=== PATIENT | female | born 1950 | race Caucasian/White ===

== ENCOUNTER 2018-01-25 20:21 | Inpatient (IN) | payer MEDICARE, MEDICAID ==
[~2018-01-25] VITALS: Ht 1605 cm; Wt 73.5 kg
[~2018-01-25 20:21] MED LIST: ACETAMINOPHEN325 MG PO; ANTIVERT25 MG PO; ASPIRIN81 M2 PO; CRESTOR5 MG PO; DIFLUCAN150 M1 PO; IBUPROFEN 800800 M1 PO; LEVAQUIN 500 M500 M2 PO; LIPITOR 20 MG T20 M1 PO; NITROGLYCERIN0.4 MG SL; NOHOMEMEDICATIONS; PREDNISONE 20 M20 M1 PO; ZPAK PO
[2018-01-25 20:25] VITALS: BP 171/73
[2018-01-25 21:04] LABS: ABSOLUTE BASOPHILS 0.1 thou/uL (0.0-0.2); ABSOLUTE EOSINOPHILS 0.1 thou/uL (0.0-0.7); ABSOLUTE LYMPHOCYTES 2.6 thou/uL (0.8-5.3); ABSOLUTE MONOCYTES 0.4 thou/uL (0.0-1.2); ABSOLUTE NEUTROPHILS 4.3 thou/uL (1.6-8.1); BASOPHILS 0.9 %; EOSINOPHILS 1.4 %; HEMATOCRIT 39.4 % (37.0-47.0); HEMOGLOBIN 13.6 gm/dL (12.0-15.0); LYMPHOCYTES 34.6 %; MCH 29.4 pg (26.0-34.0); MCHC 34.6 g/dL (28.0-37.0); MONOCYTES 5.1 %; MPV 6.9 fl. (7.2-11.1); NUCLEATED RBCS 0 /100WBC; PLATELET COUNT* 254 thou/uL (150-400); RBC 4.64 mil/uL (4.20-5.00); RDW-CV 13.6 % (10.5-14.5); WBC 7.4 thou/uL (4.0-11.0)
[2018-01-25 21:10] LABS: ANION GAP 8 mmol/L (7-16); BUN 21 mg/dL (7-18); CALCIUM 8.5 mg/dL (8.5-10.1); CHLORIDE 104 mmol/L (98-107); CO2 28 mmol/L (21-32); GLUCOSE 113 mg/dL (70-99); POTASSIUM 4.1 mmol/L (3.5-5.1); SODIUM 140 mmol/L (136-145)
[2018-01-25 21:14] LABS: APTT 25.4 Seconds (25.0-31.3); PROTIME 9.9 Seconds (9.20-11.50)
[2018-01-25 21:17] LABS: ALBUMIN 3.7 g/dL (3.4-5.0); ALKALINE PHOSPHATASE 64 U/L (46-116); LIPASE 135 U/L (73-393); SGOT 17 U/L (15-37); SGPT 25 U/L (30-65); TOTAL BILIRUBIN 0.3 mg/dL (<0.1-1.0); TOTAL PROTEIN 7.3 g/dL (6.4-8.2); TROPONIN-I LEVEL <0.06 ng/mL (<0.06)
[2018-01-26] VITALS (14 sets, daily range): BP systolic 99–133; BP diastolic 53–70
--- NOTE | 2018-01-26 05:01 | NUR ---
ASSUMED PT CARE AT 0015. PT IS A&OX4, TRACING NSR ON THE MONITOR, ON RA SATTING MID TO HIGH 90'S. PT IS UP AD SAI IN HER ROOM AND APPEARS STABLE ON HER FEET. PT DENIES ANY PAIN OR NEEDS AT THIS TIME. ADMISSION ASSESSMENT COMPLETED CHARTED. BED IN LOW POSITION, CALL LIGHT IN REACH, BED ALARM ON, YELLOW ARM BAND AND SOCKS IN PLACE. HOURLY ROUNDING COMPLETED FOR PT SAFETY.
--- NOTE | 2018-01-26 13:04 | EKG ---
[place] [address] ELECTROCARDIOGRAM REPORT Name: TANIA ALEXANDRA [address] [id number] Admission: 01/25/18 Attend Phys: Adalgisa Garcia Discharge: Date of : 54 Report #: [id number] THIS REPORT FOR: //name// [facility] ED Test Date: 2018-01-25 Test Time: 20:27:24 Pat Name: TANIA ALEXANDRA Department: Room: Gender: F Management Consulting: [facility] : 1950 Requested By: Shabnam Villanueva Order Number: [id number] MD: Lloyd Goldberg Measurements Intervals [address] [place] Rate: 71 P: 78 FL: 140 QRS: 51 QRSD: 107 T: 64 QT: 410 QTc: 446 Interpretive Statements Sinus rhythm Nonspecific repol abnormality, diffuse leads; consider ischemia Compared to ECG 05/30/2013 08:52:47 Sinus arrhythmia no longer present Electronically Signed On 01-26-2018 13:03:52 CDT by Lloyd Goldberg [email or web address] <ELECTRONICALLY SIGNED> By: Lloyd Goldberg MD, [facility] 01/26/18 1303 26 26 Lloyd Goldberg MD, [facility] /EPI
--- NOTE | 2018-01-26 13:06 | EKG ---
[place] [address] ELECTROCARDIOGRAM REPORT Name: TANIA ALEXANDRA [address]#: [id number] Admission: 01/25/18 Attend Phys: Adalgisa Garcia Discharge: Date of : 54 Report #: [id number] THIS REPORT FOR: //name// [facility] ED Test Date: 2018-01-25 Test Time: 21:57:15 Pat Name: TANIA ALEXANDRA Department: Room: Gender: F Search Specialist: OLGA : 1950 Requested By: Shabnam Villanueva Order Number: [id number] MD: Lloyd Goldberg Measurements Intervals [place] Rate: 66 P: 63 [place]: 144 QRS: 40 QRSD: 110 T: 56 QT: 432 QTc: 453 Interpretive Statements Sinus rhythm Nonspecific st-t changes in anterolateral leads, consider ischemia Compared to ECG 05/30/2013 08:52:47 Sinus arrhythmia no longer present Electronically Signed On 01-26-2018 13:05:58 CDT by Lloyd Goldberg [email or web address] <ELECTRONICALLY SIGNED> By: Lloyd Goldberg MD, [facility] 01/26/18 1305 2157 2157 Lloyd Goldberg MD, [facility] /EPI
[2018-01-26 13:30] LABS: APTT 26.4 Seconds (25.0-31.3); PROTIME 10.2 Seconds (9.20-11.50)
[2018-01-26 14:16] LABS: ANION GAP 10 mmol/L (7-16); BUN 15 mg/dL (7-18); CALCIUM 8.8 mg/dL (8.5-10.1); CHLORIDE 105 mmol/L (98-107); CHOLESTEROL 262 mg/dL (<200); CO2 27 mmol/L (21-32); CREATININE 0.7 mg/dL (0.6-1.3); GLUCOSE 94 mg/dL (70-99); HDL CHOLESTEROL 39 mg/dL (>40); LDL CHOLESTEROL 190 mg/dL (<100); POTASSIUM 3.8 mmol/L (3.5-5.1); SERUM ASSESSMENT Clear; SODIUM 142 mmol/L (136-145); TC:HDL 6.7 Ratio (Not establshd); TRIGLYCERIDE 168 mg/dL (<150); VLDL 34 mg/dL (<40)
--- NOTE | 2018-01-26 15:58 | NUR ---
CM SPOKE TO THE PATIENT TO DISCUSS HER HOME SITUATION, DISCHARGE PLANNING, AND TO INFORM OF THE ROLE OF CM. PATIENT ALERT, ORIENTED, AND INDEPENDENT WITH ADL'S. PATIENT ACTIVE AND DRIVES. PATIENT USES 0 DME. PATINENT HAS NO HX OF HH OR SNF. PATIENT PLANS TO RETURN HOME AT D/C AND DOES NOT ANTICIPATE ANY DISCHARGE PLANNING NEEDS. CM WILL REMAIN AVAILABLE TO ASSIST AND FOLLOW NEEDED.
--- NOTE | 2018-01-26 17:53 | NUR ---
ASSUMED CARE OF PATIENT AFTER REPORT THIS MORNING. PATIENT AWAKE, ALERT, AND ORIENTED APPROPRIATELY. PHYSICAL ASSESSMENT COMPLETED AND CHARTED. NO COMPLAINTS OF PAIN THIS SHIFT. GIVEN SCHEDULED MEDICATIONS, SEE EMAR FOR DOCUMENTATION. VITAL SIGNS STABLE. OXYGEN SATURATION WITHIN NORMAL LIMITS ON ROOM AIR. PATIENT IS UP AD SAI. WENT TO APRON OPERATOR TODAY. NO INTERVENTIONS NECESSARY FROM CATH. WILL RETURN TO UNIT SHORTLY. NURSING WILL CONTINUE TO MONITOR.
[2018-01-27] VITALS: BP 125/58
[2018-01-27 04:00] VITALS: BP 125/54
[2018-01-27 04:43] LABS: ABSOLUTE EOSINOPHILS 0.1 thou/uL (0.0-0.7); ABSOLUTE LYMPHOCYTES 1.8 thou/uL (0.8-5.3); ABSOLUTE MONOCYTES 0.3 thou/uL (0.0-1.2); ABSOLUTE NEUTROPHILS 4.3 thou/uL (1.6-8.1); BASOPHILS 0.6 %; EOSINOPHILS 1.8 %; HEMATOCRIT 38.7 % (37.0-47.0); HEMOGLOBIN 13.4 gm/dL (12.0-15.0); LYMPHOCYTES 27.5 %; MCH 29.2 pg (26.0-34.0); MCHC 34.6 g/dL (28.0-37.0); MCV 84.3 fL (80.0-100.0); MONOCYTES 5.2 %; NUCLEATED RBCS 0 /100WBC; PLATELET COUNT* 206 thou/uL (150-400); POLYS 64.9 %; RBC 4.59 mil/uL (4.20-5.00); RDW-CV 13.3 % (10.5-14.5); WBC 6.6 thou/uL (4.0-11.0)
[2018-01-27 05:11] LABS: CALCIUM 8.3 mg/dL (8.5-10.1); CREATININE 0.9 mg/dL (0.6-1.3); POTASSIUM 4.1 mmol/L (3.5-5.1)
--- NOTE | 2018-01-27 05:46 | NUR ---
ASSUMED PT CARE AT 1930. ASSESSMENT COMPLETED CHARTED. POST CATH UP AT 11PM LAST NIGHT, AREA TO RIGHT GROIN SHOWS NO S/SX OF INFECTION OR HEMATOMA. PT RESTING AT THIS TIME. WILL CONTINUE TO MONITOR.
[2018-01-27 08:37] VITALS: BP 148/52
--- NOTE | 2018-01-27 09:43 | NUR ---
ASSUMED CARE OF PT THIS AM AROUND 0715- GLUING MACHINE OPERATOR ELECTRONIC IN PLACE ORDERED, TRACING SB- UPON ASSESSMENT PT NOTED TO BE RESTING IN BED, WATCHING TV- PT A&O X4- CONTINENT OF BOWEL AND BLADDER- UP AD-SAI IN ROOM WITH STEADY GAIT NOTED- LCTA, RESP EVEN AND UN-LABORED- VSS, O2 SAT 98% ON RA- ABDOMEN SOFT/ROUND/NON-TENDER, BS X4 QUADS- LAST BM REPORTED 01/24/18- TRACE EDEMA NOTED TO BLE- RIGHT GROIN C/D/I WITH NO HEMATOMA OR S/S INFECTION NOTED- IV NOTED TO RIGHT INTACT AND SL- PT DENIES ANY CHST PAIN THIS AM- GOOD PO INTAKE NOTED THIS AM WITH BREAKFAST- CALL LIGHT AND PERSONAL BELONGINGS WITH IN REACH- PT MAKES NEEDS KNOWN- ALL NEEDS MET AT THIS TIME-WCTM
--- NOTE | 2018-01-27 10:28 | CARD ---
[facility] [address] [place] [address] CARDIAC CATH REPORT Name: NASRINTANIA Nagel Room: [address] ..#: [id number] Admission: 01/25/18 Attend Phys: Adalgisa Gacria Discharge: Date of : 54 Report #: [id number] THIS REPORT FOR: //name// APPROVED REPORT Study performed: 01/26/2018 16:26:46 Patient Details The patient is a 68 year-old female Event Personnel Lloyd Goldberg Supervisor Finishing, Kristen Ordoñez RN Critical Care Nurse, Shilpa Cortez RN Monitor, Carla Jaquez Scrub Procedures Performed Art Access - R femoral artery* Left Heart Cath w/LT [facility] [id number] [facility] Indication Chest pain Risk Factors Family History, Hypercholesterolemia Procedure Narrative The patient was brought electively to the Cardiac Catheterization Laboratory and was prepped and draped in a sterile manner. The right femoral was infiltrated with 2% Lidocaine subcutaneous anesthesia. A Waldo 6 FR sheath was inserted into the right femoral artery. Coronary angiography was performed using coronary diagnostic catheters. The right coronary system was accessed and visualized with a Diagnostic catheter. The left coronary system was accessed and visualized with a Diagnostic catheter. The left ventricle was accessed and visualized with a Diagnostic catheter. Left ventricular/Aortic Valve gradient assessed via catheter pullback. Pre-demployment femoral angiogram was performed . Closure device was deployed with a 6 Fr Mynx. The patient tolerated the procedure well and there were no complications associated with the procedure. There was no hematoma. Intraoperative Conscious Sedation Sedation start time: 1725 Case end Time: 1744 Fentanyl 50.0 mcg Versed [address] [address] CARDIAC CATH REPORT Name: TANIA ALEXANDRA Room: [address]#: [id number] Admission: 01/25/18 Attend Phys: Adalgisa Garcia Discharge: Date of : 54 Report #: [id number] Dose: 380 mGy Contrast Type and Amount: Visipaque 110 ml Coronary Angiography The patient's coronary anatomy is right dominant. Diagnostic Cath Left Main 0 Percent narrowing LAD 30% proximal and mid LAD narrowings Circumflex 30% mid circumflex narrowing Right Coronary Dominant vessel with 30% tubular proximal narrowing Left Ventriculography The left ventricle is normal in size with normal contractility. The left ventricular ejection fraction is estimated to be 60%. Left ventricular wall motion abnormalities are not present. There is no mitral insufficiency. Hemodynamics The aortic pressure is 133/61 mmHg with a mean of 88 mmHg. The left ventricular pressure is 134/-15 mmHg with a mean of mmHg. The left ventricular end diastolic pressure is 7 mmHg. There was no gradient across the aortic valve upon pullback. Pullback from the left ventricle to the aorta revealed no gradient across the aortic valve. Conclusion #1 mild coronary artery disease characterized by the following: A 30% proximal and mid LAD narrowing B 30% mid circumflex narrowing C dominant right coronary artery with 30% tubular proximal narrowing #2 normal left ventricular systolic function, estimated ejection fraction being 60% #3 normal left-sided hemodynamics study. Recommendations Cardiac [place] [address] CARDIAC CATH REPORT Name: TANIA ALEXANDRA Room: [address] IN [facility]#: [id number] Admission: 01/25/18 Attend Phys: Adalgisa Garcia Discharge: Date of : 54 Report #: [id number] Diagnostic Cath Approved by: Lloyd Goldberg MD Date/Time: 01/27/18 at 1027 hrs. <ELECTRONICALLY SIGNED> By: Lloyd Goldberg MD, [facility] 01/27/18 1028 1028 Lloyd Goldberg MD, FAC /INF
[2018-01-27 10:52] VITALS: BP 148/52
--- NOTE | 2018-01-27 11:28 | CON ---
[address] [address] CONSULTATION Name: TANIA ALEXANDRA Room: [address] IN [facility].#: [id number] Admission: 01/25/18 Attend Phys: Adalgisa Garcia Discharge: Date of : 54 Report #: [id number] THIS REPORT FOR: //name// CC: Dr. Grant [facility] physician/PCP Eleazar Grant DATE OF SERVICE: 01/26/2018 HISTORY OF PRESENT ILLNESS: Thank you for allowing me to see the patient in cardiovascular assessment. As you know, she is a very pleasant 68-year-old female who presented yesterday with chest pain. She developed a sensation in the middle of her back, which radiated through the anterior chest and up into the neck and jaw with achiness. The episode lasted a total of 30 minutes with some response to nitrates. She had no enzymatic evidence for injury, but did demonstrate of anterolateral ST segment depression suggestive of ischemia. She had mild recrudescence after the initial episode, which remitted spontaneously. She is comfortable at present. Risk factors for coronary artery disease include a very positive family history of premature coronary artery disease in her mother in her 40s and in multiple siblings in their 40s. She also has hyperlipoproteinemia. She denies diabetes, tobacco use, peripheral vascular disease or renal insufficiency. She has never been a smoker. ALLERGIES: REMARKABLE FOR SULFA ALLERGY AND STATIN ALLERGIES. PAST MEDICAL HISTORY: She has a history of reflux esophagitis. There is a history of prior hysterectomy and prior left knee surgery. MEDICATIONS: Have included ibuprofen. SOCIAL HISTORY: The patient is . She is a nonsmoker. REVIEW OF SYSTEMS: Remarkable for the following positive: CARDIOVASCULAR: She notes chest pain accompanying the radiation up into the neck and jaw. ALLERGIC AND IMMUNOLOGIC: She notes SULFA AND STATIN ALLERGIES. EYES: She wears glasses. Remainder is unremarkable. PHYSICAL EXAMINATION: GENERAL: Demonstrates a middle-aged female in no acute distress at this time. VITAL SIGNS: Blood pressure is 120/70, pulse rate is 74, respirations are [address] [place] [address] CONSULTATION Name: TANIA ALEXANDRA Room: [address]#: [id number] Admission: 01/25/18 Attend Phys: Adalgisa Garcia Discharge: Date of : 54 Report #: [id number] per minute. HEENT: Oral mucosa is moist. There is no thyromegaly, no scleral icterus. NECK: Jugular venous pressure is normal. Carotids are 1-2+. CHEST: Clear. CARDIAC: Reveals normal first and second heart sounds without rubs, murmurs, clicks or gallops. ABDOMEN: Mildly obese. EXTREMITIES: Without edema with intact femoral, pedal and radial pulses. LABORATORY DATA: EKG is reviewed and demonstrates of anterolateral ST segment depression suggestive of ischemia. IMPRESSION: 1. Back, chest and jaw discomfort, strongly suggestive of angina following an unstable course. 2. Remarkably positive family history for premature coronary artery disease. 3. Hyperlipoproteinemia. 4. Gastroesophageal reflux disease. 5. History of prior hysterectomy. 6. STATIN ALLERGY. RECOMMENDATIONS: 1. Would recommend cardiac catheterization to define the presence or absence of significant underlying coronary artery disease. 2. Nitrates for recurrent chest discomfort. Procedure, risks have been discussed with the patient and planned to proceed with cardiac catheterization on 01/26/2018. Critical care time 35 minutes that is from 11:30 to 12:05 on 01/26/2018. <ELECTRONICALLY SIGNED> By: Lloyd Goldberg MD, FACC 01/27/18 1128 1210 2030Jojorge Goldberg MD, FACC /nt
[2018-01-27 12:43] VITALS: BP 109/57
[2018-01-27] MEDS ORDERED: ATIVAN0.5 MG PO (13:54)
--- NOTE | 2018-01-27 14:17 | NUR ---
HERE TO ASSESS THIS AM WITH [facility] FOR D/C- HERE TO ASSESS THIS AFTERNOON WITH, WITH [facility] TO D/C HOME RECIEVED- IV TO RIGHT AC D/C'D ALONG WITH ACCOUNTING MANAGER CPA- D/C TEACHING/EDUCATION GIVEN TO PT WITH ALL QUESTIONS AND CONCERNS ADDRESSED- WRITTEN SCRIPTS WITH WRITTEN EDUCATION PROVIDE TO PT AT TIME OF D/C- BELONGINGS PACKED AND ACCOUNTED FOR PER PT AND SENT HOME AT TIME OF D/C- PT TRANSPORTED PER TECH VIA W/C WITH BELONGINGS, AT SIDE TO VEHICLE AT 1418- NO PROBLEMS TO NOTE AT TIME OF D/C
== END 2018-01-27 14:18 | disposition home or self-care (01) | DRG 287 ==
LOC: M.ERS 20:21 → M.TBA-ER 22:54 → M.2W 22:54
PROVIDERS: Internal Medicine; Personal Emergency Response Attendant; ADMIT Internal Medicine
DX: R07.89 Other chest pain (principal); I25.119 Atherosclerotic heart disease of native coronary artery with unspecified angina pectoris; F41.9 Anxiety disorder, unspecified; E78.00 Pure hypercholesterolemia, unspecified; E78.5 Hyperlipidemia, unspecified; K21.9 Gastro-esophageal reflux disease without esophagitis; Z88.2 Allergy status to sulfonamides; Z79.899 Other long term (current) drug therapy; Z90.710 Acquired absence of both cervix and uterus; Z88.8 Allergy status to other drugs, medicaments and biological substances; Z82.49 Family history of ischemic heart disease and other diseases of the circulatory system

== ENCOUNTER 2021-01-02 07:28 | Emergency (ER) | payer MEDICARE, MEDICAID ==
[~2021-01-02] VITALS: Ht 162.6 cm; Wt 76.2 kg
[~2021-01-02 07:28] MED LIST changes: +ATIVAN0.5 MG PO
[2021-01-02] MEDS ORDERED: MOTION SICKNESS25 M4 PO (07:45)
[2021-01-02 08:15] LABS: ABSOLUTE EOSINOPHILS 0.1 thou/uL (0.0-0.7); ABSOLUTE LYMPHOCYTES 1.3 thou/uL (0.8-5.3); ABSOLUTE MONOCYTES 0.3 thou/uL (0.0-1.2); ABSOLUTE NEUTROPHILS 4.5 thou/uL (1.6-8.1); BASOPHILS 0.5 %; EOSINOPHILS 1.7 %; HEMATOCRIT 39.5 % (37.0-47.0); HEMOGLOBIN 13.6 gm/dL (12.0-15.0); LYMPHOCYTES 21.3 %; MCH 29.1 pg (26.0-34.0); MCHC 34.4 g/dL (28.0-37.0); MCV 84.6 fL (80.0-100.0); MONOCYTES 4.5 %; MPV 6.3 fl. (7.2-11.1); NUCLEATED RBCS 0 /100WBC; PLATELET COUNT* 243 thou/uL (150-400); RBC 4.67 mil/uL (4.20-5.00); RDW-CV 13.5 % (10.5-14.5); WBC 6.3 thou/uL (4.0-11.0)
[2021-01-02 08:23] LABS: CALCIUM 8.6 mg/dL (8.5-10.1); CREATININE 0.9 mg/dL (0.6-1.3); POTASSIUM 4.1 mmol/L (3.5-5.1)
[2021-01-02 08:27] LABS: APTT 22.5 Seconds (25.0-31.3); PROTIME 10.2 Seconds (9.20-11.50)
[2021-01-02 08:34] LABS: ALBUMIN 3.6 g/dL (3.4-5.0); TOTAL BILIRUBIN 0.3 mg/dL (<0.1-1.0); TOTAL PROTEIN 7.5 g/dL (6.4-8.2)
[2021-01-02] MEDS ORDERED: ZOFRAN ODT4 MG DISSOLVE (09:25)
[2021-01-02] MEDS ORDERED: TRANSDERM-SCOP1 EACH TRANSDERM (09:25)
[2021-01-02 09:41] VITALS: BP 149/68
--- NOTE | 2021-01-04 10:16 | EKG ---
[place] [address] ELECTROCARDIOGRAM REPORT Name: TANIA ALEXANDRA Room: [facility]#: [id number] Admission: 01/02/21 Attend Phys: Discharge: 01/02/21 Date of : 54 Date of Service: 01/02/21 0752 Report #: [id number] THIS REPORT FOR: //name// [facility] ED Test Date: 2021-01-02 Test Time: 07:52:11 Pat Name: TANIA ALEXANDRA Department: Room: Gender: Compounder Flavorings[facility] 1950 Requested By: Cesar Duong Order Number: [id number] MD: Miguel Fong Measurements Intervals [place] Rate: 61 P: 65 [place]: 149 QRS: 46 QRSD: 123 T: 68 QT: 423 QTc: 426 Interpretive Statements Sinus rhythm Nonspecific intraventricular conduction delay Compared to ECG 01/25/2018 21:57:15 ST (T wave) deviation no longer present Possible ischemia no longer present Electronically Signed On 01-04-2021 10:16:23 CDT by Miguel Fong [email or web address] <ELECTRONICALLY SIGNED> By: Miguel Fong MD, FACC 01/04/21 1016 0752 0752 Miguel Fong MD, [facility] /EPI
== END 2021-01-02 09:43 | disposition home or self-care (01) ==
LOC: M.ERS 07:28
PROVIDERS: Family Medicine
DX: R42 Dizziness and giddiness (principal); Z88.2 Allergy status to sulfonamides; Z90.710 Acquired absence of both cervix and uterus; Z79.899 Other long term (current) drug therapy